=== PATIENT | female | born 1965 ===

== ENCOUNTER 2016-06-30 09:01 | Day surgery (SDC) | payer SELFPAY ==
[2016-06-30] MEDS ORDERED: Lactated Ringer's 500 ML IV ONE (10:49)
[2016-06-30] MEDS ORDERED: Propofol 10 mg/ml Inj (20 ML) ONE (11:33)
[2016-06-30 12:16] VITALS: O2SAT 100
[2016-06-30 12:32] VITALS: BP 120/85; PULSE 85; RESP 13; TEMP 97.2
== END 2016-06-30 14:08 | disposition home or self-care (01) ==
LOC: H.ENDO 09:01
PROVIDERS: ATTEND Internal Medicine Gastroenterology
DX: Z12.11 Encounter for screening for malignant neoplasm of colon (principal); K62.89 Other specified diseases of anus and rectum